=== PATIENT | female | born 1980 | race Caucasian/White ===

== ENCOUNTER 2019-07-02 14:22 | Emergency (ER) | payer OTHER ==
[~2019-07-02] VITALS: Ht 160 cm; Wt 96.6 kg
[2019-07-02 14:26] VITALS: BP 117/76
--- NOTE | 2019-07-02 14:30 | NUR ---
Patient ambulated to bed 12. RN evaluating patient at bedside.
--- NOTE | 2019-07-02 14:47 | NUR ---
PT REPORTS L SIDED HEAD DISCOMFORT AND FACIAL PAIN AROUND NOSE/EYES X1 DAY, AND DIZZINESS X3 DAYS.PER PT, DIZINESS IS INTERMITTENT. PT STATES "IT IS NOT LIKE A HEADACHE, IT JUST FEELS LIKE PRESSURE". STATES MANN HAVE SLIGHT STRESSED OUT BECAUSE OF HER CHANGING IN JOB POSITIONS. DENIES ANY FEVER, NAUSEA, VOMITING AT THIS TIME. ER MD TO SEE THE PT. RESP EVEN AND NON-LABORED. WILL CONTINUEM TO FILOMENA PT. HX: NONE RX: NONE
[2019-07-02] MEDS ORDERED: IBUPROFEN 600 MG TAB PO ONE (14:55)
[2019-07-02] MEDS ORDERED: PHENYLEPHRINE 1% 15 ML BTL NS ONE (14:55)
--- NOTE | 2019-07-02 15:22 | NUR ---
Dr. Sididqui evaluating patient at bedside.
[2019-07-02 15:56] VITALS: BP 120/79
== END 2019-07-02 15:55 | disposition home or self-care (01) ==
LOC: MED 14:22
DX: R51 Headache (principal); R09.81 Nasal congestion; R59.0 Localized enlarged lymph nodes
CPT/HCPCS: 99283

== ENCOUNTER 2019-12-18 15:09 | Emergency (ER) | payer OTHER ==
[~2019-12-18] VITALS: Ht 160 cm; Wt 94.8 kg
[2019-12-18 15:32] VITALS: BP 133/82
--- NOTE | 2019-12-18 16:03 | NUR ---
Pt taken to bed 2.
--- NOTE | 2019-12-18 16:10 | NUR ---
39/F BIB SELF C/O INTERMITTENT LOWER ABDOMINAL CRAMPING X 1 MONTH. WITH VAG BLEEDING UPON WIPING.LMP 11/06/2019; A1. TEST POSITIVE.PATIENT STATES PAIN OF 5/10 AT THIS TIME.PATIENT POSITIONED FOR COMFORT; HOB ELEVATED; BEDRAILS UP X1; BED DOWN. ER MD MADE AWARE OF PT STATUS.
[2019-12-18 17:35] LABS: BASOPHILS % (AUTO) 0.6 % (0.0-2.0); EOSINOPHILS # (AUTO) 0.1 K/uL (0-0.4); HEMATOCRIT 36.5 % (36-48); LYMPHOCYTES # (AUTO) 1.4 K/uL (2.5-16.5); MEAN CORPUSCULAR HEMOGLOBIN 30 pg (27-31); MEAN CORPUSCULAR HGB CONC 33 g/dL (33-37); MEAN CORPUSCULAR VOLUME 91.7 fL (80-94); MONOCYTES # (AUTO) 0.5 K/uL (0.8-1.0); MONOCYTES % (AUTO) 7.3 % (1.7-9.3); NEUTROPHILS # (AUTO) 5.2 K/uL (1.8-7.7); NEUTROPHILS % (AUTO) 72.1 % (42.2-75.2); PLATELET COUNT (AUTO) 297 K/uL (140-450); RED BLOOD CELL COUNT(AUTO) 3.98 MIL/uL (4.20-5.40); RED CELL DISTRIBUTION WIDTH 14.5 % (11.6-13.7); WHITE BLOOD COUNT (AUTO) 7.2 K/uL (4.8-10.8)
--- NOTE | 2019-12-18 19:11 | NUR ---
Pt report given to CORRINA ROBLEDO. Transfer of care at this time.
[2019-12-18 19:50] VITALS: BP 133/82
--- NOTE | 2019-12-18 19:50 | NUR ---
PT DISHCHARGED WITH PAPERWORK. EDUCATED PT REGARDING D/C INSTRUCTIONS. PT VERBALIZED UNDERSTANDING. TOLD PT TO FOLLOW UP WITH PCP AND WHEN TO RETURN TO ED. PT VSS. ALL QUESTIONS ANSWERED.
== END 2019-12-18 19:50 | disposition home or self-care (01) ==
LOC: MED 15:09
DX: O26.851 Spotting complicating pregnancy, first trimester (principal); Z3A.01 Less than 8 weeks gestation of pregnancy
CPT/HCPCS: 36415; 76817; 81025; 84702; 85025; 86900; 86901; 99284; Q0092